=== PATIENT | female | born 1955 | race Caucasian/White ===

== ENCOUNTER → 2016-04-12 | Outpatient (CLI) | payer OTHER ==
[~2016-04-12] MED LIST: ASPIRIN 81M81 MG/TA2 PO; AZILECT1 M1 PO; CARDI-OMEGA1000 MG PO; CLARITIN 1010 MG/TAB PO; DIOVAN HCT 25 M1 TAB PO; GLUCOPHAGE500 MG/TAB PO; HUMALOG100 U/ML SQ; HYDROXYURE500 MG/CAP PO; LASIX 20MG TABL20 MG PO; MERIBIN5 MG PO; REQUIP2 MG PO; RHINOCORT0.032 MG/1 NS; SINEMET 25/101 UDTAB PO; SYNTHROID0.112 MG/T PO; TENORMIN 2525 MG/TAB PO; TENORMIN 5050 MG/TAB PO; TRESIBA FL200 UNIT/1 SQ; ZOCOR 40MG40 MG PO
== END ==
LOC: SUN.DIA 03-18 15:48
DX: E11.65 Type 2 diabetes mellitus with hyperglycemia (principal); E66.9 Obesity, unspecified; Z68.41 Body mass index [BMI] 40.0-44.9, adult; Z71.3 Dietary counseling and surveillance; E78.5 Hyperlipidemia, unspecified; I10 Essential (primary) hypertension; E03.9 Hypothyroidism, unspecified; F17.210 Nicotine dependence, cigarettes, uncomplicated

== ENCOUNTER → 2016-05-04 | Outpatient (CLI) | payer OTHER | LOC: SUN.DIA | DX: E11.65 Type 2 diabetes mellitus with hyperglycemia (principal); E66.9 Obesity, unspecified; Z71.3 Dietary counseling and surveillance; E78.5 Hyperlipidemia, unspecified; I10 Essential (primary) hypertension; E03.9 Hypothyroidism, unspecified ==

== ENCOUNTER → 2016-05-04 | Outpatient (CLI) | payer OTHER | LOC: COL.PUL 13:05 | DX: R05 Cough (principal); Z72.0 Tobacco use ==

== ENCOUNTER → 2016-06-29 | Outpatient (CLI) | payer OTHER | LOC: SUN.DIA 08:44 | DX: E11.65 Type 2 diabetes mellitus with hyperglycemia (principal); Z79.4 Long term (current) use of insulin; E66.9 Obesity, unspecified; Z68.42 Body mass index [BMI] 45.0-49.9, adult; Z71.3 Dietary counseling and surveillance; E78.5 Hyperlipidemia, unspecified; I10 Essential (primary) hypertension; E03.9 Hypothyroidism, unspecified; F17.210 Nicotine dependence, cigarettes, uncomplicated ==

== ENCOUNTER 2016-09-14 23:36 | Emergency (ER) | payer OTHER ==
[~2016-09-14] VITALS: Ht 160 cm; Wt 125.5 kg
[~2016-09-14 23:36] MED LIST changes: -CLARITIN 1010 MG/TAB PO; -HUMALOG100 U/ML SQ; -LASIX 20MG TABL20 MG PO; -MERIBIN5 MG PO; -REQUIP2 MG PO; -TENORMIN 5050 MG/TAB PO; -TRESIBA FL200 UNIT/1 SQ
[2016-09-14 23:40] VITALS: TEMP 98.2
[2016-09-15 00:48] LABS: HEMATOCRIT 37.9 % (37.0-47.0); HEMOGLOBIN 12.2 g/dl (12.5-16.0); MEAN CELL VOLUME 115 fl (80.0-100.0); MEAN CORPUSCULAR HEMOGLOBIN 37 pg (27.0-31.0); MEAN CORPUSCULAR HGB CONC 32 g/dl (33.0-37.0); MEAN PLATELET VOLUME 8.8 fl (7.4-10.4); PLATELET COUNT 626 K/mm3 (130-400); RED BLOOD COUNT 3.31 M/mm3 (4.10-5.30); REDCELL DISTRIBUTION WIDTH-CV 14.7 % (11.5-14.5); WHITE BLOOD COUNT 8.6 K/mm3 (4.8-10.8)
[2016-09-15 00:56] LABS: ADD PATHOLOGY DIFF REVIEW NO
[2016-09-15 01:02] LABS: ADJUSTED CALCIUM 9.2 mg/dL (8.4-10.2); ALBUMIN 3.9 gm/dL (3.5-5.0); BILIRUBIN,TOTAL 0.4 mg/dL (0.0-1.0); CALCIUM 9.1 mg/dL (8.4-10.2); CREATININE, serum 0.94 mg/dL (0.52-1.25); POTASSIUM 4.3 mmol/L (3.4-5.0)
[2016-09-15 01:20] LABS: BAND 3 % (0-10); EOSINOPHIL 2 % (0-4); HYPOCHROMIA 1+; NEUTROPHILS 66 % (42.0-75.2); STOMATOCYTE 2+; TOTAL CELLS COUNTED 100
[2016-09-15 01:21] LABS: ANISOCYTOSIS 1+; POIKILOCYTOSIS 2+; POLYCHROMASIA 1+
[2016-09-15] MEDS ORDERED: LASIX 20MG TABL20 MG PO (01:48)
[2016-09-15] MEDS ORDERED: GLUCOPHAGE500 MG/TAB PO (01:55)
[2016-09-15] MEDS ORDERED: HUMALOG100 U/ML SQ (01:58)
[2016-09-15] MEDS ORDERED: TRESIBA FL200 UNIT/1 SQ (01:59)
[2016-09-15] MEDS ORDERED: TENORMIN 5050 MG/TAB PO (01:59)
[2016-09-15] MEDS ORDERED: MERIBIN5 MG PO (02:01)
[2016-09-15] MEDS ORDERED: CLARITIN 1010 MG/TAB PO (02:02)
[2016-09-15] MEDS ORDERED: REQUIP2 MG PO (02:04)
[2016-09-15 02:32] VITALS: BP 140/78; PULSE 76
== END 2016-09-15 02:34 | disposition home or self-care (01) ==
LOC: COL.ER 23:36
PROVIDERS: Nurse Practitioner
DX: M25.551 Pain in right hip (principal); R60.9 Edema, unspecified; E11.9 Type 2 diabetes mellitus without complications; I10 Essential (primary) hypertension; E03.9 Hypothyroidism, unspecified; G20 Parkinson's disease; F17.210 Nicotine dependence, cigarettes, uncomplicated; Z79.4 Long term (current) use of insulin; Z79.84 Long term (current) use of oral hypoglycemic drugs; Z79.82 Long term (current) use of aspirin; Z90.49 Acquired absence of other specified parts of digestive tract; Z90.89 Acquired absence of other organs; Z98.51 Tubal ligation status; Z98.890 Other specified postprocedural states

== ENCOUNTER → 2016-10-28 | Outpatient (CLI) | payer OTHER ==
[~2016-10-28] MED LIST changes: +CLARITIN 1010 MG/TAB PO; +HUMALOG100 U/ML SQ; +LASIX 20MG TABL20 MG PO; +MERIBIN5 MG PO; +REQUIP2 MG PO; +TENORMIN 5050 MG/TAB PO; +TRESIBA FL200 UNIT/1 SQ
== END ==
LOC: SUN.DIA
DX: E11.9 Type 2 diabetes mellitus without complications (principal); Z79.4 Long term (current) use of insulin; E78.5 Hyperlipidemia, unspecified; I10 Essential (primary) hypertension; E03.9 Hypothyroidism, unspecified; E66.9 Obesity, unspecified; Z68.42 Body mass index [BMI] 45.0-49.9, adult; Z71.3 Dietary counseling and surveillance; F17.210 Nicotine dependence, cigarettes, uncomplicated
CPT/HCPCS: G0108

== ENCOUNTER → 2017-02-03 | Outpatient (CLI) | payer OTHER ==
[~2017-02-03] MED LIST changes: +MASON NATURAL1200 MG PO; +MULTI VITAMINS1 TAB PO; +REMERON 15M15 MG/TA1 PO
== END ==
LOC: SUN.DIA 11:19
DX: E11.9 Type 2 diabetes mellitus without complications (principal); Z79.4 Long term (current) use of insulin; E78.5 Hyperlipidemia, unspecified; I10 Essential (primary) hypertension; E03.9 Hypothyroidism, unspecified; E66.9 Obesity, unspecified; Z68.42 Body mass index [BMI] 45.0-49.9, adult; Z71.3 Dietary counseling and surveillance; F17.210 Nicotine dependence, cigarettes, uncomplicated
CPT/HCPCS: G0108

== ENCOUNTER → 2017-02-03 | Outpatient (CLI) | payer OTHER ==
[~2017-02-03] MED LIST changes: -MASON NATURAL1200 MG PO; -MULTI VITAMINS1 TAB PO; -REMERON 15M15 MG/TA1 PO
== END ==
LOC: MC.RAD 11:02
DX: Z12.31 Encounter for screening mammogram for malignant neoplasm of breast (principal)

== ENCOUNTER 2017-02-08 07:45 | Day surgery (SDC) | payer OTHER ==
[~2017-02-08] VITALS: Ht 160 cm; Wt 125.8 kg
[2017-02-08 08:06] VITALS: BP 131/55; PULSE 77; TEMP 98.3
[2017-02-08] MEDS ORDERED: REMERON 15M15 MG/TA1 PO (08:48)
[2017-02-08] MEDS ORDERED: MULTI VITAMINS1 TAB PO (08:50)
[2017-02-08] MEDS ORDERED: MASON NATURAL1200 MG PO (08:51)
[2017-02-08 09:40] VITALS: BP 122/57; PULSE 80; TEMP 97.7
[2017-02-08 09:55] VITALS: BP 115/57; PULSE 74
[2017-02-08 10:10] VITALS: BP 108/55; PULSE 73
== END 2017-02-08 11:10 | disposition home or self-care (01) ==
LOC: SDCO 07:45
DX: D12.3 Benign neoplasm of transverse colon (principal); K63.89 Other specified diseases of intestine; K57.30 Diverticulosis of large intestine without perforation or abscess without bleeding; I10 Essential (primary) hypertension; F17.210 Nicotine dependence, cigarettes, uncomplicated; M17.9 Osteoarthritis of knee, unspecified; E11.9 Type 2 diabetes mellitus without complications; E03.9 Hypothyroidism, unspecified; G47.33 Obstructive sleep apnea (adult) (pediatric); Z79.4 Long term (current) use of insulin; Z90.79 Acquired absence of other genital organ(s); Z90.710 Acquired absence of both cervix and uterus; Z90.722 Acquired absence of ovaries, bilateral; Z90.49 Acquired absence of other specified parts of digestive tract
CPT/HCPCS: OP; J2405; J2704; J3010

== ENCOUNTER → 2017-02-22 | Outpatient (CLI) | payer OTHER ==
[~2017-02-22] MED LIST changes: +MASON NATURAL1200 MG PO; +MULTI VITAMINS1 TAB PO; +REMERON 15M15 MG/TA1 PO
== END ==
LOC: COL.RAD 09:52
DX: Z02.71 Encounter for disability determination (principal); M17.11 Unilateral primary osteoarthritis, right knee

== ENCOUNTER 2017-04-12 16:39 | Inpatient (IN) | payer OTHER ==
[~2017-04-12] VITALS: Ht 160 cm; Wt 115.6 kg
[2017-04-12 19:32] LABS: MEAN CELL VOLUME 118 fl (80.0-100.0); MEAN CORPUSCULAR HGB CONC 32 g/dl (33.0-37.0); MEAN PLATELET VOLUME 9.1 fl (7.4-10.4); PLATELET COUNT 287 K/mm3 (130-400); RED BLOOD COUNT 2.98 M/mm3 (4.10-5.30); REDCELL DISTRIBUTION WIDTH-CV 17.1 % (11.5-14.5)
[2017-04-12 19:45] LABS: HEMATOCRIT 35.2 % (37.0-47.0); HEMOGLOBIN 11.4 g/dl (12.5-16.0); MEAN CORPUSCULAR HEMOGLOBIN 38 pg (27.0-31.0)
[2017-04-12 19:52] LABS: ARTERIAL BLD GAS O2 SATURATION 92.5 % (92-100); ARTERIAL BLD GAS TCO2 CT 27.9; ARTERIAL BLOOD GAS BASE EXCESS 0.6 (-2-2); ARTERIAL BLOOD GAS HCO3 26.4 meq/L (22-26); ARTERIAL BLOOD GAS PCO2 48.2 mmHg (35-45); ARTERIAL BLOOD GAS PO2 65.4 mmHg (80-100); ARTERIAL BLOOD GAS pH 7.36 (7.35-7.45)
[2017-04-12 20:17] LABS: ALANINE AMINOTRANSFERASE 18 U/L (9-52); ALBUMIN 3.9 gm/dL (3.5-5.0); ALKALINE PHOSPHATASE 89 U/L (50-136); ANION GAP 9 mmol/L (7-16); AST,SGOT 17 U/L (15-37); BILIRUBIN,TOTAL 0.3 mg/dL (0.0-1.0); BLOOD UREA NITROGEN 27 mg/dL (7-17); CALCIUM 9.2 mg/dL (8.4-10.2); CARBON DIOXIDE 29 mmol/L (22-30); CHLORIDE 100 mmol/L (98-107); CREATINE KINASE 109 U/L (30-135); CREATININE, serum 0.91 mg/dL (0.52-1.25); GLUCOSE 136 mg/dL (74-106); POTASSIUM 3.9 mmol/L (3.4-5.0); SODIUM 138 mmol/L (137-145); TOTAL PROTEIN 7.3 gm/dL (6.4-8.2)
[2017-04-12 20:21] LABS: INR 1.1 (0.8-3.0); PROTHROMBIN TIME 12.8 SECONDS (9.7-12.8)
[2017-04-12 20:29] LABS: TROPONIN-I < 0.012 ng/mL (0.000-0.034)
[2017-04-12 20:30] LABS: ANISOCYTOSIS 1+; BAND 8 % (0-10); EOSINOPHIL 2 % (0-4); LYMPHOCYTE 80 % (20.0-51.0); NEUTROPHILS 8 % (42.0-75.2); PLATELET ESTIMATE NORMAL (NORMAL)
[2017-04-12 22:49] VITALS: BP 119/56; BP 82/55; PULSE 114; TEMP 98.5
[2017-04-13] VITALS (565 sets, daily range): BP systolic 99–135; BP diastolic 46–68; PULSE 94–105; TEMP 97.9–99.6; O2SAT 74–100
[2017-04-13 01:06] LABS: ARTERIAL BLD GAS O2 SATURATION 94.2 % (92-100); ARTERIAL BLD GAS TCO2 CT 28.2; ARTERIAL BLOOD GAS BASE EXCESS -0.7 (-2-2); ARTERIAL BLOOD GAS HCO3 26.5 meq/L (22-26); ARTERIAL BLOOD GAS PCO2 55.6 mmHg (35-45); ARTERIAL BLOOD GAS PO2 79.4 mmHg (80-100)
[2017-04-13 03:15] LABS: MEAN CELL VOLUME 120 fl (80.0-100.0); MEAN CORPUSCULAR HGB CONC 32 g/dl (33.0-37.0); MEAN PLATELET VOLUME 8.7 fl (7.4-10.4); PLATELET COUNT 270 K/mm3 (130-400); RED BLOOD COUNT 2.81 M/mm3 (4.10-5.30); REDCELL DISTRIBUTION WIDTH-CV 17.2 % (11.5-14.5)
[2017-04-13 03:23] LABS: HEMATOCRIT 33.8 % (37.0-47.0); HEMOGLOBIN 10.7 g/dl (12.5-16.0); MEAN CORPUSCULAR HEMOGLOBIN 38 pg (27.0-31.0)
[2017-04-13 03:24] LABS: ALBUMIN 3.6 gm/dL (3.5-5.0); BILIRUBIN,TOTAL 0.1 mg/dL (0.0-1.0); CALCIUM 8.5 mg/dL (8.4-10.2); CREATININE, serum 0.88 mg/dL (0.52-1.25); POTASSIUM 4.3 mmol/L (3.4-5.0); TOTAL PROTEIN 6.9 gm/dL (6.4-8.2)
[2017-04-13 03:28] LABS: LYMPHOCYTE 50 % (20.0-51.0); NEUTROPHILS 48 % (42.0-75.2)
[2017-04-13 03:29] LABS: HYPOCHROMIA 1+; ROULEAUX 2+
[2017-04-13 03:36] LABS: ANISOCYTOSIS 1+; POIKILOCYTOSIS 1+; STOMATOCYTE 1+
[2017-04-13 03:54] LABS: ARTERIAL BLD GAS O2 SATURATION 97.3 % (92-100); ARTERIAL BLD GAS TCO2 CT 26.8; ARTERIAL BLOOD GAS HCO3 25.1 meq/L (22-26); ARTERIAL BLOOD GAS PO2 113.1 mmHg (80-100); ARTERIAL BLOOD GAS pH 7.28 (7.35-7.45)
[2017-04-13 04:45] LABS: GRANULAR CAST >12 /lpf; MUCOUS Present /lpf; PH 5 (5-8); SQUAMOUS EPITHELIAL 0-2 /hpf; URINE APPEARANCE Hazy; URINE BACTERIA Many /hpf; URINE BILIRUBIN Negative (NEGATIVE); URINE BLOOD 1+ (NEGATIVE); URINE COLOR Yellow; URINE GLUCOSE Negative (NEGATIVE); URINE KETONE Negative (NEGATIVE); URINE LEUKOCYTE ESTERASE Negative (NEGATIVE); URINE NITRATE Positive (NEGATIVE); URINE PROTEIN(semi-quant) Negative (NEGATIVE); URINE RBC 0-2 /hpf; URINE UROBILINOGEN Negative (NEGATIVE); URINE WBC 0-2 /hpf
[2017-04-13 04:56] LABS: COLLECTION METHOD CATHETER
[2017-04-13 11:16] LABS: ARTERIAL BLD GAS O2 SATURATION 96.7 % (92-100); ARTERIAL BLD GAS TCO2 CT 27.6; ARTERIAL BLOOD GAS BASE EXCESS -0.9 (-2-2); ARTERIAL BLOOD GAS PCO2 54.6 mmHg (35-45); ARTERIAL BLOOD GAS PO2 100.5 mmHg (80-100)
[2017-04-13] MEDS ORDERED: SINGULAIR 110 MG/TAB PO (22:17)
[2017-04-14] VITALS (123 sets, daily range): BP systolic 97–126; BP diastolic 52–69; PULSE 67–83; TEMP 97.7–98.7; O2SAT 93–100
[2017-04-14 05:17] LABS: ARTERIAL BLD GAS O2 SATURATION 98.2 % (92-100); ARTERIAL BLD GAS TCO2 CT 26.9; ARTERIAL BLOOD GAS HCO3 25.2 meq/L (22-26); ARTERIAL BLOOD GAS PCO2 54.7 mmHg (35-45); ARTERIAL BLOOD GAS pH 7.28 (7.35-7.45)
[2017-04-14 05:18] LABS: ARTERIAL BLOOD GAS PO2 134.5 mmHg (80-100)
[2017-04-14 05:53] LABS: MEAN CELL VOLUME 123 fl (80.0-100.0); MEAN CORPUSCULAR HGB CONC 31 g/dl (33.0-37.0); MEAN PLATELET VOLUME 9.1 fl (7.4-10.4); PLATELET COUNT 258 K/mm3 (130-400); RED BLOOD COUNT 2.62 M/mm3 (4.10-5.30); REDCELL DISTRIBUTION WIDTH-CV 17.2 % (11.5-14.5)
[2017-04-14 06:07] LABS: HEMATOCRIT 32.3 % (37.0-47.0); HEMOGLOBIN 9.9 g/dl (12.5-16.0); MEAN CORPUSCULAR HEMOGLOBIN 38 pg (27.0-31.0)
[2017-04-14 06:08] LABS: ALBUMIN 3.4 gm/dL (3.5-5.0); BILIRUBIN,TOTAL 0.2 mg/dL (0.0-1.0); CALCIUM 8.5 mg/dL (8.4-10.2); CREATININE, serum 0.86 mg/dL (0.52-1.25); MAGNESIUM 2.3 mg/dL (1.6-2.3); POTASSIUM 4.3 mmol/L (3.4-5.0); TOTAL PROTEIN 6.6 gm/dL (6.4-8.2)
[2017-04-14 07:15] LABS: ANISOCYTOSIS 2+; BAND 36 % (0-10); LYMPHOCYTE 28 % (20.0-51.0); NEUTROPHILS 36 % (42.0-75.2); PLATELET ESTIMATE NORMAL (NORMAL)
[2017-04-14 19:34] LABS: ARTERIAL BLD GAS O2 SATURATION 97.8 % (92-100); ARTERIAL BLOOD GAS BASE EXCESS -2.5 (-2-2); ARTERIAL BLOOD GAS HCO3 23.6 meq/L (22-26); ARTERIAL BLOOD GAS PCO2 45.8 mmHg (35-45); ARTERIAL BLOOD GAS pH 7.33 (7.35-7.45)
[2017-04-14 19:45] LABS: MAGNESIUM 2.3 mg/dL (1.6-2.3); POTASSIUM 4.2 mmol/L (3.4-5.0)
[2017-04-15 00:30] VITALS: BP 130/59; PULSE 67; TEMP 98.2
[2017-04-15 03:40] VITALS: BP 116/61; PULSE 65; TEMP 97.8
[2017-04-15 08:00] VITALS: BP 137/69; PULSE 75; TEMP 98
[2017-04-15 10:07] LABS: MEAN CELL VOLUME 119 fl (80.0-100.0); MEAN CORPUSCULAR HGB CONC 32 g/dl (33.0-37.0); MEAN PLATELET VOLUME 9.1 fl (7.4-10.4); PLATELET COUNT 257 K/mm3 (130-400); RED BLOOD COUNT 2.96 M/mm3 (4.10-5.30); REDCELL DISTRIBUTION WIDTH-CV 17.1 % (11.5-14.5)
[2017-04-15 10:09] LABS: HEMATOCRIT 35.1 % (37.0-47.0); HEMOGLOBIN 11.3 g/dl (12.5-16.0); MEAN CORPUSCULAR HEMOGLOBIN 38 pg (27.0-31.0)
[2017-04-15 10:23] LABS: CALCIUM 9.1 mg/dL (8.4-10.2); CREATININE, serum 0.9 mg/dL (0.52-1.25); POTASSIUM 4.1 mmol/L (3.4-5.0)
[2017-04-15 11:46] LABS: BAND 14 % (0-10); LYMPHOCYTE 32 % (20.0-51.0); NEUTROPHILS 54 % (42.0-75.2); PLATELET ESTIMATE NORMAL (NORMAL)
[2017-04-15 11:47] LABS: ANISOCYTOSIS 1+
[2017-04-15 11:48] LABS: STOMATOCYTE 3+
[2017-04-15 12:00] VITALS: BP 129/70; PULSE 92; TEMP 98.1
[2017-04-15 17:01] VITALS: BP 136/79; PULSE 69; TEMP 98.4
[2017-04-15 20:44] VITALS: BP 147/72; PULSE 66; TEMP 98.5
[2017-04-16 00:59] VITALS: BP 143/80; PULSE 67; TEMP 98.5
[2017-04-16 07:28] LABS: MEAN CELL VOLUME 118 fl (80.0-100.0); MEAN CORPUSCULAR HGB CONC 32 g/dl (33.0-37.0); MEAN PLATELET VOLUME 9.2 fl (7.4-10.4); PLATELET COUNT 261 K/mm3 (130-400); RED BLOOD COUNT 2.82 M/mm3 (4.10-5.30)
[2017-04-16 07:29] VITALS: BP 144/67; PULSE 74; TEMP 98.2
[2017-04-16 07:38] LABS: HEMATOCRIT 33.3 % (37.0-47.0); HEMOGLOBIN 10.7 g/dl (12.5-16.0); MEAN CORPUSCULAR HEMOGLOBIN 38 pg (27.0-31.0)
[2017-04-16 07:41] LABS: ALBUMIN 3.5 gm/dL (3.5-5.0); BILIRUBIN,TOTAL 0.4 mg/dL (0.0-1.0); CREATININE, serum 0.8 mg/dL (0.52-1.25); MAGNESIUM 2.4 mg/dL (1.6-2.3); PHOSPHOROUS 3.1 mg/dL (2.5-4.5); TOTAL PROTEIN 6.6 gm/dL (6.4-8.2)
[2017-04-16 09:00] LABS: BAND 7 % (0-10); LYMPHOCYTE 25 % (20.0-51.0); NEUTROPHILS 66 % (42.0-75.2)
[2017-04-16 09:06] LABS: PLATELET ESTIMATE NORMAL (NORMAL)
[2017-04-16 09:12] LABS: ANISOCYTOSIS 1+
[2017-04-16 11:05] VITALS: BP 139/72; PULSE 65; TEMP 97.5
[2017-04-16 16:04] VITALS: BP 157/64; PULSE 59; TEMP 98.1
[2017-04-16 19:40] VITALS: BP 152/84; PULSE 69; TEMP 98.5
[2017-04-16 23:28] VITALS: BP 130/51; PULSE 51; TEMP 98.5
[2017-04-17 04:24] VITALS: BP 119/58; PULSE 61; TEMP 98.5
[2017-04-17 07:44] LABS: MEAN CELL VOLUME 117 fl (80.0-100.0); MEAN CORPUSCULAR HGB CONC 33 g/dl (33.0-37.0); MEAN PLATELET VOLUME 9.4 fl (7.4-10.4); PLATELET COUNT 287 K/mm3 (130-400); RED BLOOD COUNT 2.94 M/mm3 (4.10-5.30); REDCELL DISTRIBUTION WIDTH-CV 17.1 % (11.5-14.5)
[2017-04-17 07:52] LABS: HEMATOCRIT 34.5 % (37.0-47.0); HEMOGLOBIN 11.2 g/dl (12.5-16.0); MEAN CORPUSCULAR HEMOGLOBIN 38 pg (27.0-31.0)
[2017-04-17 07:57] LABS: CREATININE, serum 0.84 mg/dL (0.52-1.25); MAGNESIUM 2.4 mg/dL (1.6-2.3); PHOSPHOROUS 3.1 mg/dL (2.5-4.5); POTASSIUM 4.1 mmol/L (3.4-5.0)
[2017-04-17 08:04] VITALS: BP 138/73; PULSE 65; TEMP 98.8
[2017-04-17 09:37] LABS: ANISOCYTOSIS 1+; BAND 3 % (0-10); LYMPHOCYTE 39 % (20.0-51.0); METAMYELOCYTE 1 % (0-0); NEUTROPHILS 51 % (42.0-75.2); PLATELET ESTIMATE NORMAL (NORMAL)
[2017-04-17 11:19] VITALS: BP 123/55; PULSE 66; TEMP 97.9
[2017-04-17 15:29] VITALS: BP 146/74; PULSE 71; TEMP 98.3
[2017-04-17 19:43] VITALS: BP 154/73; PULSE 67; TEMP 98.1
[2017-04-18] VITALS (7 sets, daily range): BP systolic 107–132; BP diastolic 55–72; PULSE 60–89; TEMP 98.1–99.2
[2017-04-18 05:31] LABS: ARTERIAL BLD GAS TCO2 CT 33.8; ARTERIAL BLOOD GAS BASE EXCESS 6.5 (-2-2); ARTERIAL BLOOD GAS HCO3 32.2 meq/L (22-26); ARTERIAL BLOOD GAS PCO2 51.4 mmHg (35-45); ARTERIAL BLOOD GAS PO2 49.7 mmHg (80-100); ARTERIAL BLOOD GAS pH 7.42 (7.35-7.45)
[2017-04-18 06:39] LABS: HEMATOCRIT 36.8 % (37.0-47.0); HEMOGLOBIN 11.9 g/dl (12.5-16.0); MEAN CELL VOLUME 118 fl (80.0-100.0); MEAN CORPUSCULAR HEMOGLOBIN 38 pg (27.0-31.0); MEAN CORPUSCULAR HGB CONC 32 g/dl (33.0-37.0); MEAN PLATELET VOLUME 9.2 fl (7.4-10.4); PLATELET COUNT 321 K/mm3 (130-400); RED BLOOD COUNT 3.13 M/mm3 (4.10-5.30); REDCELL DISTRIBUTION WIDTH-CV 17.2 % (11.5-14.5)
[2017-04-18 07:04] LABS: CALCIUM 8.9 mg/dL (8.4-10.2); CREATININE, serum 0.86 mg/dL (0.52-1.25); MAGNESIUM 2.2 mg/dL (1.6-2.3); POTASSIUM 3.8 mmol/L (3.4-5.0)
[2017-04-18 07:22] LABS: BAND 1 % (0-10); LYMPHOCYTE 63 % (20.0-51.0); NEUTROPHILS 35 % (42.0-75.2); PLATELET ESTIMATE NORMAL (NORMAL)
[2017-04-18 10:49] LABS: ARTERIAL BLD GAS O2 SATURATION 93.3 % (92-100); ARTERIAL BLD GAS TCO2 CT 29.3; ARTERIAL BLOOD GAS BASE EXCESS 1.7 (-2-2); ARTERIAL BLOOD GAS HCO3 27.8 meq/L (22-26); ARTERIAL BLOOD GAS PCO2 50.2 mmHg (35-45); ARTERIAL BLOOD GAS PO2 66.1 mmHg (80-100); ARTERIAL BLOOD GAS pH 7.36 (7.35-7.45)
[2017-04-19 03:03] VITALS: BP 107/53; PULSE 72; TEMP 98.4
[2017-04-19] MEDS ORDERED: FOLIC ACID 11 MG/TA1 PO (07:27)
[2017-04-19] MEDS ORDERED: MUCINEX 60600 MG/TA1 PO (07:32)
[2017-04-19 07:46] LABS: MEAN CELL VOLUME 118 fl (80.0-100.0); MEAN CORPUSCULAR HGB CONC 32 g/dl (33.0-37.0); MEAN PLATELET VOLUME 9.3 fl (7.4-10.4); PLATELET COUNT 327 K/mm3 (130-400); RED BLOOD COUNT 3.11 M/mm3 (4.10-5.30); REDCELL DISTRIBUTION WIDTH-CV 17.2 % (11.5-14.5)
[2017-04-19 07:48] LABS: HEMOGLOBIN 11.9 g/dl (12.5-16.0); MEAN CORPUSCULAR HEMOGLOBIN 38 pg (27.0-31.0)
[2017-04-19 07:49] LABS: HEMATOCRIT 36.8 % (37.0-47.0)
[2017-04-19 08:02] LABS: CALCIUM 8.8 mg/dL (8.4-10.2); CREATININE, serum 0.76 mg/dL (0.52-1.25); POTASSIUM 4.4 mmol/L (3.4-5.0)
[2017-04-19 08:06] VITALS: BP 137/65; PULSE 85; TEMP 97.8
[2017-04-19 08:44] LABS: ANISOCYTOSIS 1+; BAND 14 % (0-10); HYPOCHROMIA 1+; LYMPHOCYTE 58 % (20.0-51.0); NEUTROPHILS 26 % (42.0-75.2); PLATELET ESTIMATE INCREASED (NORMAL)
[2017-04-19] MEDS ORDERED: OMNICEF 300MG300 MG PO (08:47)
[2017-04-19] MEDS ORDERED: HEPARIN LOCK FLU5 M1 IV ×2 (08:51)
[2017-04-19] MEDS ORDERED: NS INT FLUSH 1010 ML IV ×2 (08:52)
[2017-04-19] MEDS ORDERED: LASIX 20MG TABL20 MG PO (08:52)
[2017-04-19] MEDS ORDERED: LEVEMIR FLEX100 U/ML SQ (08:54)
[2017-04-19] MEDS ORDERED: DIOVAN 160MG160 MG PO (08:55)
[2017-04-19] MEDS ORDERED: NOVOLOG FLEX100 U/ML SQ (09:00)
[2017-04-19] MEDS ORDERED: INCRUSE EL62.5 MCG/A IH (09:03)
[2017-04-19] MEDS ORDERED: PROAIR HFA0.09 MG/AC IH (09:04)
[2017-04-19 10:00] VITALS: BP 137/65; PULSE 85; TEMP 97.8
== END 2017-04-19 11:37 | DRG 189 ==
LOC: COL.ER 16:39 → SURG 21:11 → ICU 21:11 → MEDICAL 04-15 14:00
PROVIDERS: Emergency Medicine; Internal Medicine; Internal Medicine Pulmonary Disease; Nurse Practitioner Family
PROC: 02HV33Z Insertion of Infusion Device into Superior Vena Cava, Percutaneous Approach (ICD-10-PCS; principal; 2017-04-13)
DX: J96.21 Acute and chronic respiratory failure with hypoxia (principal); J18.9 Pneumonia, unspecified organism; I50.32 Chronic diastolic (congestive) heart failure; D69.3 Immune thrombocytopenic purpura; Z68.43 Body mass index [BMI] 50.0-59.9, adult; J44.1 Chronic obstructive pulmonary disease with (acute) exacerbation; E66.2 Morbid (severe) obesity with alveolar hypoventilation; B34.9 Viral infection, unspecified; J96.22 Acute and chronic respiratory failure with hypercapnia; I11.0 Hypertensive heart disease with heart failure; E11.65 Type 2 diabetes mellitus with hyperglycemia; G20 Parkinson's disease; F17.210 Nicotine dependence, cigarettes, uncomplicated; D70.9 Neutropenia, unspecified
CPT/HCPCS: 99223-AI; 99232-AI; 99233-AI; 99239; A9284; C1751; J0692; J1644; J1650; J1815; J1940; J1956; J2920; J2930; J3370; J7030; J7050; J7512; Q9967

== ENCOUNTER 2017-04-22 13:17 | Outpatient (CLI) | payer OTHER ==
[~2017-04-22 13:17] MED LIST changes: +DIOVAN 160MG160 MG PO; +FOLIC ACID 11 MG/TA1 PO; +HEPARIN LOCK FLU5 M1 IV; +INCRUSE EL62.5 MCG/A IH; +LEVEMIR FLEX100 U/ML SQ; +MUCINEX 60600 MG/TA1 PO; +NOVOLOG FLEX100 U/ML SQ; +NS INT FLUSH 1010 ML IV; +OMNICEF 300MG300 MG PO; +PROAIR HFA0.09 MG/AC IH; +SINGULAIR 110 MG/TAB PO
[2017-04-22 13:40] VITALS: BP 106/66; PULSE 82; TEMP 98.3
== END 2017-04-22 14:34 | disposition home or self-care (01) ==
LOC: EUO 13:17
DX: Z79.899 Other long term (current) drug therapy (principal)

== ENCOUNTER → 2017-05-16 | Outpatient (CLI) | payer OTHER | LOC: COL.RAD 07:02 | DX: M50.21 Other cervical disc displacement, high cervical region (principal); M48.02 Spinal stenosis, cervical region ==

== ENCOUNTER → 2017-05-18 | Outpatient (CLI) | payer OTHER | LOC: COL.RAD 05-16 07:30 | DX: M19.011 Primary osteoarthritis, right shoulder (principal); M25.411 Effusion, right shoulder ==

== ENCOUNTER 2017-06-10 01:29 | Inpatient (IN) | payer OTHER ==
[2017-06-10] VITALS (489 sets, daily range): BP systolic 82–135; BP diastolic 38–64; PULSE 95–116; TEMP 98.9–100.5; O2SAT 85–100
[~2017-06-10] VITALS: Ht 165.1 cm; Wt 130.0 kg
[~2017-06-10 01:29] MED LIST changes: +DOXYCYCLINE 10100 MG PO
[2017-06-10 01:40] LABS: ARTERIAL BLD GAS O2 SATURATION 98.5 % (92-100); ARTERIAL BLD GAS TCO2 CT 33.5; ARTERIAL BLOOD GAS BASE EXCESS 7.6 (-2-2); ARTERIAL BLOOD GAS HCO3 32.1 meq/L (22-26); ARTERIAL BLOOD GAS PCO2 45.8 mmHg (35-45); ARTERIAL BLOOD GAS pH 7.46 (7.35-7.45)
[2017-06-10 01:41] LABS: ARTERIAL BLOOD GAS PO2 160.4 mmHg (80-100)
[2017-06-10 01:55] LABS: MEAN CELL VOLUME 116 fl (80.0-100.0); MEAN CORPUSCULAR HGB CONC 32 g/dl (33.0-37.0); MEAN PLATELET VOLUME 10.2 fl (7.4-10.4); PLATELET COUNT 99 K/mm3 (130-400); RED BLOOD COUNT 1.74 M/mm3 (4.10-5.30); REDCELL DISTRIBUTION WIDTH-CV 17.2 % (11.5-14.5)
[2017-06-10 01:57] LABS: HEMATOCRIT 20.2 % (37.0-47.0); MEAN CORPUSCULAR HEMOGLOBIN 37 pg (27.0-31.0)
[2017-06-10 01:58] LABS: HEMOGLOBIN 6.5 g/dl (12.5-16.0)
[2017-06-10 02:05] LABS: BILIRUBIN,TOTAL 0.3 mg/dL (0.0-1.0); CALCIUM 8.3 mg/dL (8.4-10.2); CREATININE, serum 1.38 mg/dL (0.52-1.25); MAGNESIUM 1.6 mg/dL (1.6-2.3); PHOSPHOROUS 4.3 mg/dL (2.5-4.5); TOTAL PROTEIN 6.3 gm/dL (6.4-8.2)
[2017-06-10 02:11] LABS: COLLECTION METHOD CATHETER
[2017-06-10 02:13] LABS: TROPONIN-I 0.026 ng/mL (0.000-0.034)
[2017-06-10 02:28] LABS: C-REACTIVE PROTEIN 14.9 mg/dL (0.0-0.9)
[2017-06-10 02:32] LABS: THYROID STIMULATING HORMONE 5.86 uIU/mL (0.465-4.680)
[2017-06-10 03:02] LABS: POLYCHROMASIA 2+
[2017-06-10 03:03] LABS: HYPOCHROMIA 1+; PLATELET ESTIMATE DECREASED (NORMAL)
[2017-06-10 03:04] LABS: ANISOCYTOSIS 3+; POIKILOCYTOSIS 1+
[2017-06-10 03:05] LABS: MICROCYTOSIS 1+
[2017-06-10 03:20] LABS: INR 1.4 (0.8-3.0); PARTIAL THROMBOPLASTIN TIME 24.9 SECONDS (26.0-37.0); PROTHROMBIN TIME 16.2 SECONDS (9.7-12.8)
[2017-06-10 03:24] LABS: AMORPHOUS CRYSTAL Present /uL; MUCOUS Present /lpf; PH 5 (5-8); SQUAMOUS EPITHELIAL 0-2 /hpf; URINE APPEARANCE Cloudy; URINE BACTERIA Moderate /hpf; URINE BILIRUBIN Negative (NEGATIVE); URINE BLOOD 1+ (NEGATIVE); URINE COLOR Yellow; URINE GLUCOSE Negative (NEGATIVE); URINE KETONE Negative (NEGATIVE); URINE LEUKOCYTE ESTERASE Negative (NEGATIVE); URINE NITRATE Negative (NEGATIVE); URINE PROTEIN(semi-quant) Negative (NEGATIVE); URINE RBC 0-2 /hpf; URINE UROBILINOGEN Negative (NEGATIVE)
[2017-06-10 03:52] LABS: ARTERIAL BLD GAS O2 SATURATION 84.9 % (92-100); ARTERIAL BLD GAS TCO2 CT 34.8; ARTERIAL BLOOD GAS BASE EXCESS 7.7 (-2-2); ARTERIAL BLOOD GAS HCO3 33.1 meq/L (22-26); ARTERIAL BLOOD GAS PCO2 53.6 mmHg (35-45); ARTERIAL BLOOD GAS PO2 53.6 mmHg (80-100); ARTERIAL BLOOD GAS pH 7.41 (7.35-7.45)
[2017-06-10 05:45] LABS: MEAN CELL VOLUME 116 fl (80.0-100.0); MEAN CORPUSCULAR HGB CONC 32 g/dl (33.0-37.0); MEAN PLATELET VOLUME 10.6 fl (7.4-10.4); PLATELET COUNT 79 K/mm3 (130-400); RED BLOOD COUNT 1.44 M/mm3 (4.10-5.30); REDCELL DISTRIBUTION WIDTH-CV 17.2 % (11.5-14.5)
[2017-06-10 05:48] LABS: CALCIUM 7.3 mg/dL (8.4-10.2); CREATININE, serum 1.33 mg/dL (0.52-1.25); POTASSIUM 4.4 mmol/L (3.4-5.0)
[2017-06-10 05:49] LABS: MEAN CORPUSCULAR HEMOGLOBIN 38 pg (27.0-31.0)
[2017-06-10 05:51] LABS: HEMATOCRIT 16.7 % (37.0-47.0); HEMOGLOBIN 5.4 g/dl (12.5-16.0)
[2017-06-10] MEDS ORDERED: FOLIC ACID 11 MG/TA1 PO (06:35)
[2017-06-10] MEDS ORDERED: BACITRACIN Z500 U/GM TP (06:37)
[2017-06-10] MEDS ORDERED: SINEMET CR 50 M1 TER PO (06:38)
[2017-06-10] MEDS ORDERED: DULCOLAX STOOL100 MG PO (06:39)
[2017-06-10] MEDS ORDERED: NEURONTIN300 MG/CAP PO (06:40)
[2017-06-10] MEDS ORDERED: NORCO 325 MG-51 TAB PO (06:42)
[2017-06-10] MEDS ORDERED: LEVEMIR100 U/ML SQ ×2 (06:43→06:44)
[2017-06-10] MEDS ORDERED: COZAAR 50MG50 MG/TAB PO (06:45)
[2017-06-10] MEDS ORDERED: MILK OF MA400 MG/52 PO (06:46)
[2017-06-10 07:01] LABS: BAND 9 % (0-10); LYMPHOCYTE 26 % (20.0-51.0); METAMYELOCYTE 5 % (0-0); MYELOCYTE 12 % (0-0); NEUTROPHILS 12 % (42.0-75.2)
[2017-06-10 07:02] LABS: NUCLEATED RED BLOOD CELL 1 (0-6)
[2017-06-10] MEDS ORDERED: NOVOLOG 100U100 U/M1 SQ (07:03)
[2017-06-10] MEDS ORDERED: K-DUR20 MEQ PO (07:04)
[2017-06-10 07:13] LABS: ANISOCYTOSIS 2+; BAND 7 % (0-10); HYPOCHROMIA 1+; LYMPHOCYTE 46 % (20.0-51.0); METAMYELOCYTE 6 % (0-0); MICROCYTOSIS 1+; MYELOCYTE 6 % (0-0); NEUTROPHILS 10 % (42.0-75.2); NUCLEATED RED BLOOD CELL 3 (0-6); PLATELET ESTIMATE DECREASED (NORMAL); POIKILOCYTOSIS 2+; POLYCHROMASIA 1+
[2017-06-10 09:03] LABS: ARTERIAL BLD GAS O2 SATURATION 84.1 % (92-100); ARTERIAL BLOOD GAS HCO3 31.5 meq/L (22-26); ARTERIAL BLOOD GAS PCO2 50.8 mmHg (35-45); ARTERIAL BLOOD GAS PO2 50.1 mmHg (80-100); ARTERIAL BLOOD GAS pH 7.41 (7.35-7.45)
[2017-06-10 09:41] LABS: PATHOLOGY DIFF REVIEW OK +
[2017-06-10 11:35] LABS: HEMATOCRIT 22.3 % (37.0-47.0); HEMOGLOBIN 7.1 g/dl (12.5-16.0)
== END 2017-06-10 13:45 | disposition short-term general hospital (02) | DRG 189 ==
LOC: COL.ER 01:29 → ICU 02:28
PROVIDERS: Emergency Medicine; Nurse Practitioner Family
PROC: 02HV33Z Insertion of Infusion Device into Superior Vena Cava, Percutaneous Approach (ICD-10-PCS; principal; 2017-06-10)
DX: J96.21 Acute and chronic respiratory failure with hypoxia (principal); I50.33 Acute on chronic diastolic (congestive) heart failure; N17.9 Acute kidney failure, unspecified; E66.2 Morbid (severe) obesity with alveolar hypoventilation; C95.00 Acute leukemia of unspecified cell type not having achieved remission; Z68.42 Body mass index [BMI] 45.0-49.9, adult; J96.22 Acute and chronic respiratory failure with hypercapnia; E11.9 Type 2 diabetes mellitus without complications; G20 Parkinson's disease; I11.0 Hypertensive heart disease with heart failure; J44.9 Chronic obstructive pulmonary disease, unspecified; E78.5 Hyperlipidemia, unspecified; E03.9 Hypothyroidism, unspecified; D53.9 Nutritional anemia, unspecified; F17.210 Nicotine dependence, cigarettes, uncomplicated
CPT/HCPCS: 99223-AI; 99239; C9113; J0692; J1265; J1720; J1940; J1956; J3370; J7030; J7050; J7060; P9016